=== PATIENT | female | born 1990 | race Caucasian/White ===

== ENCOUNTER 2020-10-20 20:20 | Emergency (ER) | payer OTHER ==
[~2020-10-20] VITALS: Ht 165.1 cm; Wt 104.5 kg
[2020-10-20 20:20] VITALS: BP 141/90
--- NOTE | 2020-10-20 20:38 | PHYS DOC ---
Adult General HPI HPI Patient is an otherwise healthy 30-year-old female who presents with left clavicle pain. States she was doing yard work and felt a twinge. States she has pain there about 3 out of 10, dull and achy in nature with no radiation. States she has full range of motion. Denies any other injuries. States she took an Aleve earlier. Review of Systems Review of Systems Review of systems otherwise unremarkable except noted in HPI Physical Exam Physical Exam Constitutional: Well developed, well nourished, no acute distress, non-toxic appearance. [] Neck: Normal range of motion, no tenderness, supple, no stridor. [] Cardiovascular:Heart rate regular rhythm, no murmur [] Lungs & Thorax: Bilateral breath sounds clear to auscultation. Patient has pain just lateral to the sternoclavicular joint with no obvious deformities or bruising noted. Range of motion intact. Left-sided neurovascular exam intact. [] Back: No tenderness, no CVA tenderness. [] Neurologic: Alert and oriented X 3, normal motor function, normal sensory function, no focal deficits noted. [] Psychologic: Affect normal, judgement normal, mood normal. [] EKG EKG [] Radiology/Procedures Radiology/Procedures [] Heart Score C/O Chest Pain: No Risk Factors: Risk Factors: DM, Current or recent (<one month) smoker, HTN, HLP, family history of CAD, obesity. Risk Scores: Risk Factors: DM, Current or recent (<one month) smoker, HTN, HLP, family history of CAD, obesity. Course & Med Decision Making Course & Med Decision Making Patient is a 30-year-old female who presents with clavicle pain Vital signs not concerning. Physical exam noted above. Patient given Tylenol and ice pack. Imaging with no acute osseous abnormalities. Advised on pain control at home. Advised to call primary care physician in the morning to update on ED visit and set up a follow-up visit. Gave return precautions to the ED. Patient grateful, verbalized understanding and agreed with plan of discharge. [] Dragon Disclaimer Dragon Disclaimer This electronic medical record was generated, in whole or in part, using a voice recognition dictation system. Departure Departure: Impression: Primary Impression: Clavicle pain Disposition: HOME / SELF CARE / HOMELESS Condition: GOOD Referrals: ASIF HYMAN DO (PCP) Patient Instructions: RICE - Routine Care for Injuries Additional Instructions: Please read all the attached information carefully. You can use Tylenol, ibuprofen and Benadryl as well as ice at home for pain control. You do have a lymph node in the area which could be reactive seen as you just got your Covid vaccination. Your imaging did not show any bone breaks. Please call your primary care physician first thing in the morning to update on your ED visit and set up a follow-up as needed. Please come back to the ED with new or concerning symptoms. DEE DEE SHAIKH MD Oct 20, 2020 20:38
[2020-10-20] MEDS ORDERED: ACETAMINOPHEN 500 MG TABLET PO ONE (20:45)
--- NOTE | 2020-10-20 21:03 | RAD ---
Exam: Left clavicle 2 views INDICATION: Left arm pain, recent sac seen TECHNIQUE: Frontal and axillary views of the clavicle Comparisons: None FINDINGS: Bone mineralization is normal. No acute or healed fractures. Soft tissues are unremarkable. Joint spa mason are well-maintained. IMPRESSION: No acute osseous abnormality. Electronically signed by: Portillo Car MD (10/20/2020 9:00 PM) [place]
== END 2020-10-20 21:08 | disposition home or self-care (01) ==
LOC: ER 20:20
DX: M25.512 Pain in left shoulder (principal); X50.9XXA Other and unspecified overexertion or strenuous movements or postures, initial encounter; Y93.89 Activity, other specified; Y92.096 Garden or yard of other non-institutional residence as the place of occurrence of the external cause; Y99.0 Civilian activity done for income or pay
CPT/HCPCS: 73000; 99283

== ENCOUNTER 2021-06-01 17:17 | Emergency (ER) | payer OTHER ==
[~2021-06-01] VITALS: Ht 165.1 cm; Wt 121.5 kg
[2021-06-01 17:17] VITALS: BP 145/96
--- NOTE | 2021-06-01 17:54 | PHYS DOC ---
Past History Past Medical History: Pneumonia Additional Past Medical Histor: seasonal allergies (JOYCELYN HOOK APRN) Past Surgical History: No Surgical History (JOYCELYN HOOK APRN) Alcohol Use: Rarely (JOYCELYN HOOK APRN) General Adult EDM: Chief Complaint: CONGESTION HPI: HPI: Patient is a 30-year-old female that presents today with nasal congestion, sore throat, and cough since over the weekend. Patient states that over the last couple days she has had increased nasal congestion with postnasal drip that has caused her to have a sore throat and now she has been coughing large amount of phlegm up as well. Patient states she has a history of pneumonia in the past, she states that she does not run a fever when she does have pneumonia it is mostly by symptoms. Patient states that she randomly will take Flonase nasal spray as needed and will also take Zyrtec uhjk-lqn-hdhskcu as needed. She states over the last couple days she has taken Benadryl at night to help her rest and Robitussin-DM. Patient states she has had 2 Covid vaccines but has not had her influenza vaccine. She also states no one in her household has been sick (JOYCELYN HOOK APRN) Review of Systems: Review of Systems: Constitutional: Denies fever or chills Eyes: Denies change in visual acuity HENT: nasal congestion or sore throat Respiratory: cough; denies shortness of breath Cardiovascular: Denies chest pain or edema GI: Denies abdominal pain, nausea, vomiting, bloody stools or diarrhea : Denies dysuria Musculoskeletal: Denies back pain or joint pain Integument: Denies rash Neurologic: Denies headache, focal weakness or sensory changes Endocrine: Denies polyuria or polydipsia Lymphatic: Denies swollen glands Psychiatric: Denies depression or anxiety (JOYCELYN HOOK APRN) Allergies: Allergies: Allergies Coded Allergies Type Severity Reaction Last Updated Verified silver sulfadiazine Allergy Intermediate Hives 10/20/20 Yes (JOYCELYN HOOK APRN) Physical Exam: PE: Constitutional: Well developed, well nourished, no acute distress, non-toxic appearance. [] HENT: Normocephalic, atraumatic, bilateral external ears normal, oropharynx moist with redness noted. TMs bulging no erythema noted, nasal passages red Eyes: PERRLA, EOMI, conjunctiva normal, no discharge. [] Neck: Normal range of motion, no tenderness, supple, no stridor. [] Cardiovascular:Heart rate regular rhythm, no murmur [] Lungs & Thorax: Bilateral breath sounds clear to auscultation [] Abdomen: Bowel sounds normal, soft, no tenderness, no masses, no pulsatile masses. [] Skin: Warm, dry, no erythema, no rash. [] Back: No tenderness, no CVA tenderness. [] Extremities: No tenderness, no cyanosis, no clubbing, ROM intact, no edema. [] Neurologic: Alert and oriented X 3, normal motor function, normal sensory function, no focal deficits noted. [] Psychologic: Affect normal, judgement normal, mood normal. [] (JOYCELYN HOOK APRN) Current Patient Data: Vital Signs: Vital Signs Date Time Temp Pulse Resp B/P (MAP) Pulse Ox O2 Delivery O2 Flow Rate FiO2 06/01/21 17:17 98.2 93 18 145/96 (112) 98 Room Air (JOYCELYN HOOK APRN) EKG: EKG: [] (JOYCELYN HOOK APRN) Radiology/Procedures: Radiology/Procedures: [] (JOYCELYN HOOK APRN) Heart Score: C/O Chest Pain: N/A (JOYCELYN OHOK APRN) Course & Med Decision Making: Course & Med Decision Making Pertinent Labs and Imaging studies reviewed. (See chart for details) Spoke to patient at length regarding [id number]-nkk-orudxrv medications that can be used to treat symptoms. Patient states in the past she has reacted poorly to Chloe-D or anything with pseudoephedrine in it. Patient instructed to take Flonase twice daily 2 sprays per nare also to continue her Zyrtec will also recommend that patient take Robitussin multiple symptoms strength to help with nasal decongestant. Also recommended patient use a coolmist humidifier at her house also some ghiu-exy-zawuirc Vicks VapoRub will also help as well. Follow- up with your primary care physician or the physician that has been listed on your paperwork for follow-up (JOYCELYN HOOK APRN) Course & Med Decision Making I was the Attending physician on the above date of service of this patient. This patient was evaluated, examined, treated, and dispositioned from the emergency department by the mid-level practitioner. Although I was working at the time , no assistance was requested. Electronically signed, Shruti Mondragon DO (SHRUTI MONDRAGON DO) Sofia Disclaimer: Sofia Disclaimer: This electronic medical record was generated, in whole or in part, using a voice recognition dictation system. (JOYCELYN HOOK APRN) Departure Departure: Impression: Primary Impression: Viral syndrome Disposition: HOME / SELF CARE / HOMELESS Condition: STABLE Referrals: ASIF HYMAN DO (PCP) Patient Instructions: Viral Syndrome Additional Instructions: Take trob-fiq-tqrkals Zyrtec once daily Flonase 2 sprays per nare twice daily Take ucws-ukn-kmyulst Robitussin multisymptom syrup to help with control your symptoms Cool-mist humidifier in the bedroom while you are sleeping Return to the emergency department for increased shortness of breath, inability to swallow due to throat pain, or start running a fever this not controlled by Tylenol and/or ibuprofen Follow-up with your primary care physician in the next 3-5 days for management of your symptoms JOYCELYN HOOK APRN Jun 01, 2021 17:54 SHRUTI MONDRAGON DO Jun 02, 2021 06:24
== END 2021-06-01 18:00 | disposition home or self-care (01) ==
LOC: ER 17:17
DX: B34.9 Viral infection, unspecified (principal); Z88.8 Allergy status to other drugs, medicaments and biological substances
CPT/HCPCS: 99282